=== PATIENT | male | born 1995 | race Caucasian/White ===

== ENCOUNTER 2018-04-09 21:03 | Emergency (ER) | payer MEDICAID, OTHER ==
[~2018-04-09] VITALS: Ht 172.7 cm; Wt 66.9 kg
[2018-04-09 21:06] VITALS: BP 138/89
== END 2018-04-09 21:46 | disposition home or self-care (01) ==
LOC: ED 21:40
DX: L03.314 Cellulitis of groin (principal); L02.214 Cutaneous abscess of groin
CPT/HCPCS: 99283

== ENCOUNTER 2018-04-12 19:53 | Inpatient (IN) | payer MEDICAID ==
[~2018-04-12] VITALS: Ht 172.7 cm; Wt 65.3 kg
[2018-04-12] MEDS ORDERED: SODIUM CHLORIDE FLUSH 10ML SYR IVF ONE (20:30)
[2018-04-12] MEDS ORDERED: CLINDAMYCIN PMX 600MG/50ML 50 ML IVPB ONE (20:30)
[2018-04-12] MEDS ORDERED: SODIUM CHLORIDE 0.9% 1,000ML IVBOLUS ONE (20:30)
[2018-04-12] MEDS ORDERED: CLINDAMYCIN PMX 600MG/50ML 50 ML ONE (20:41)
[2018-04-12 20:54] LABS: BASOPHILS # (AUTO) 0.04 x10^3/uL (0-0.1); BASOPHILS % (AUTO) 0 % (0-1); EOSINOPHILS # (AUTO) 0.08 x10^3/uL (0-0.4); EOSINOPHILS % (AUTO) 1 % (1-7); LYMPHOCYTES # (AUTO) 1.48 x10^3/uL (1-3.4); LYMPHOCYTES % (AUTO) 15 % (22-44); MD NO; MEAN CORPUSCULAR HEMOGLOBIN 30.7 pg (27.5-34.5); MEAN CORPUSCULAR VOLUME 90.2 fL (81-97); MEAN PLATELET VOLUME 8.3 fL (7.4-10.4); MONOCYTES # (AUTO) 0.94 x10^3/uL (0.2-0.8); MONOCYTES % (AUTO) 10 % (2-9); NEUTROPHILS % (AUTO) 74 % (42-75); PLATELET COUNT 285 x10^3/uL (130-400); RED BLOOD COUNT 4.44 x10^6/uL (4.38-5.82); RED CELL DISTRIBUTION WIDTH 13.3 % (9.4-14.8)
[2018-04-12 21:06] LABS: ALANINE AMINOTRANSFERASE 32 U/L (12-78); ANION GAP 9 mmol/L (5-15); CALCIUM 8.6 mg/dL (8.5-10.1); CHLORIDE 107 mmol/L (98-107); CREATININE 1.22 mg/dL (0.7-1.3)
[2018-04-12 21:09] LABS: ALKALINE PHOSPHATASE 96 U/L (45-117); BILIRUBIN,TOTAL 0.4 mg/dL (0.2-1.0); TOTAL PROTEIN 7.7 g/dL (6.4-8.2)
[2018-04-12 22:15] VITALS: BP 109/55
[2018-04-12] MEDS: SODIUM CHLORIDE 0.9% 1,000 ML IV SCH (23:26)
[2018-04-12] MEDS ORDERED: PHARMACOKINETIC CONSULTATION MC ONE (23:30)
[2018-04-12] MEDS ORDERED: HYDROcodone/APAP 5/325 TABLET PO PRN (23:30)
[2018-04-12] MEDS ORDERED: GUAIFENESIN/DM 200-20MG, 10ML UDC PO PRN (23:30)
[2018-04-12] MEDS ORDERED: BISACODYL 10 MG SUPP PR PRN (23:30)
[2018-04-12] MEDS ORDERED: VANCOMYCIN PER PHARMACY MC PRN (23:30)
[2018-04-12] MEDS ORDERED: PHARMACOKINETIC MONITORING MC PRN (23:30)
[2018-04-12] MEDS ORDERED: morphine SULFATE 10 MG/ML, 1ML IVPush PRN (23:30)
[2018-04-12] MEDS ORDERED: ONDANSETRON ODT 4 MG PO PRN (23:30)
[2018-04-12] MEDS: VANCOMYCIN 1,200 MG in SODIUM CHLORIDE 0.9% 250 ML IV SCH (23:35)
[2018-04-13 00:22] LABS: HEMOGLOBIN A1C 5.1 % (4.2-6.3)
[2018-04-13 00:56] VITALS: BP 120/67
[2018-04-13 08:01] VITALS: BP 94/56
[2018-04-13] MEDS: VANCOMYCIN 1,200 MG in SODIUM CHLORIDE 0.9% 250 ML IV SCH ×2 (11:29→23:03)
[2018-04-13 14:16] VITALS: BP 114/72
[2018-04-13] MEDS: SODIUM CHLORIDE 0.9% 1,000 ML IV SCH (15:27)
[2018-04-13 19:43] VITALS: BP 130/74
[2018-04-14 01:53] VITALS: BP 112/54
[2018-04-14 08:09] VITALS: BP 122/56
[2018-04-14] MEDS ORDERED: DOXY100T PO (09:19)
== END 2018-04-14 09:58 | disposition home or self-care (01) | DRG 607 ==
LOC: ED 20:31 → EDIP 21:11 → 3NE 22:09
PROVIDERS: ADMIT Family Medicine; ATTEND Family Medicine
PROC: 0W9F3ZZ Drainage of Abdominal Wall, Percutaneous Approach (ICD-10-PCS; principal; 2018-04-12)
DX: L73.9 Follicular disorder, unspecified (principal); L02.211 Cutaneous abscess of abdominal wall; L02.214 Cutaneous abscess of groin; L03.311 Cellulitis of abdominal wall; F17.210 Nicotine dependence, cigarettes, uncomplicated
CPT/HCPCS: 10060; 36415; 80053; 83036; 83605; 85025; 87070; 87205; 87806; 99285; J3370; G0475; J7030; J7050

== ENCOUNTER 2019-04-11 20:37 | Emergency (ER) | payer MEDICAID ==
[~2019-04-11] VITALS: Ht 170.2 cm; Wt 64.7 kg
[~2019-04-11 20:37] MED LIST: DOXY100T PO
--- NOTE | 2019-04-11 21:36 | NUR ---
PT ARRIVED TO ROOM 24 AMBULATORY. PT HAS RASH ON CHEST, DENIES IT BEING ITCHY. PT STATES HE IS WORRIED ABOUT HIS LIVER. PT AAO X 4, PA AT BEDSIDE, DRESSED IN GOWN AND ON GURNEY. PT ATTACHED TO MONITOR, CALL LIGHT WIHTIN REACH, SIDERAIL X [address]
--- NOTE | 2019-04-11 21:37 | NUR ---
PA AT BEDSIDE FOR EXAM.
[2019-04-11 21:52] VITALS: BP 121/61
--- NOTE | 2019-04-11 21:52 | NUR ---
PT MEDICATED PER ORDER. VSS.
--- NOTE | 2019-04-11 22:54 | NUR ---
Carlos alfaro in ED - 04/11/19 at 2255 by BRITTNI Patient/Caregiver given discharge instructions and they have confirmed that they understand the instructions. Patient ambulatory WITH CANE BUT ESCORTED OUT VIA WHEELCHAIR.
--- NOTE | 2019-04-11 23:09 | NUR ---
Patient/Caregiver given discharge instructions and they have confirmed that they understand the instructions. Patient ambulatory with steady gait.
== END 2019-04-11 23:10 | disposition home or self-care (01) ==
LOC: ED 23:00
DX: B36.0 Pityriasis versicolor (principal)
CPT/HCPCS: 99283; J7512

== ENCOUNTER 2020-10-01 16:35 | Emergency (ER) | payer BC, MEDICAID, OTHER ==
[~2020-10-01] VITALS: Ht 172.7 cm; Wt 68.8 kg
--- NOTE | 2020-10-01 16:51 | NUR ---
ASSUMED CARE OF PT AT THIS TIME FROM LOBBY. AMBULATORY TO ROOM WITH STEADY GAIT. NAD NOTED. RESP REGULAR AND UNLABORED. 24 Y/O M PRESENTS STATING "ABSCESS ON MY RIGHT SIDE OF BUTT FOR ABOUT 3 DAYS, THOUGHT IT WAS A ZIT, GOT BIGGER, MORE PAINFUL, THIS MORNING ALL SORTS OF COLORS COMING OUT OF IT AND IT OPENED UP, WENT TO URGENT CARE THIS MORNING, ON ANTIBIOTICS (AUGMENTIN)." RATES ABSCESS PAIN AT [facility]CT[facility] 04/16. FALL PRECAUTIONS IN PLACE. SIDE RAILS UPX2. A&OX4. FREDI FIERRO AT BEDSIDE FOR EVALUATION. AWAITING ORDERS. DISCUSSED TRIAGE TEMP 100.0 WITH FREDI FIERRO, AWARE. CALL LIGHT IN REACH.
[2020-10-01] MEDS ORDERED: MORPHINE SULFATE 4 MG/ML, 1ML ONE (17:17)
[2020-10-01] MEDS ORDERED: CEFAZOLIN PMX 1GM/50ML 50 ML IV ONE (17:30)
[2020-10-01] MEDS ORDERED: SULFAMETH./TRIMETHOPRIM DS 800MG/160MG TABLET PO ONE (17:30)
[2020-10-01] MEDS ORDERED: CEPHALEXIN 500 MG CAPSULE PO ONE (17:30)
[2020-10-01] MEDS ORDERED: DIPH,PERTUSS(ACELL),TET VAC/PF 0.5 ML IM-VACC ONE (17:30)
[2020-10-01] MEDS ORDERED: CEPHALEXIN 500 MG CAPSULE ONE (17:46)
[2020-10-01] MEDS ORDERED: SULFAMETH./TRIMETHOPRIM DS 800MG/160MG TABLET ONE (17:46)
--- NOTE | 2020-10-01 17:54 | NUR ---
PT MEDICATED NOTED PER MD ORDER WITH ORAL ANTIBIOTICS, NO BLOOD CULTURES PER ERP. AWAITING CHART AND DISCHARGE PAPERS FROM [facility] FIERRO
[2020-10-01 17:56] VITALS: BP 132/67
== END 2020-10-01 18:19 | disposition home or self-care (01) ==
LOC: ED 18:11
DX: L02.31 Cutaneous abscess of buttock (principal); R50.9 Fever, unspecified
CPT/HCPCS: 99283